=== PATIENT | male | born 1960 | race Caucasian/White ===

== ENCOUNTER 2017-04-17 17:04 | Emergency (ER) | payer SELFPAY ==
[~2017-04-17] VITALS: Ht 175.3 cm; Wt 108.0 kg
[2017-04-17 17:12] VITALS: BP 137/92
== END 2017-04-17 19:40 | disposition left against medical advice (07) ==
LOC: ER 17:07
DX: S61.412A Laceration without foreign body of left hand, initial encounter (principal); Z53.21 Procedure and treatment not carried out due to patient leaving prior to being seen by health care provider; X58.XXXA Exposure to other specified factors, initial encounter; Y93.89 Activity, other specified; Y92.89 Other specified places as the place of occurrence of the external cause; Y99.8 Other external cause status